=== PATIENT | male | born 1970 | race Caucasian/White ===

== ENCOUNTER 2016-11-14 23:24 | Emergency (ER) | payer SELFPAY ==
[~2016-11-14] VITALS: Ht 172.7 cm; Wt 72.3 kg
[~2016-11-14 23:24] MED LIST: ACET-704 PO; ACET500T68 PO; CITA20TA9 PO; CYCL-331 PO; DIPH25CA58 PO; HYDR-2758 PO; HYDR-971 PO; IBUP200T43 PO; IBUP400T18 PO; IBUP800T19 PO; LISI10TA2 PO; MELA3TAB2 PO; MELO7.5T29 PO; META-21 PO; METH-37 PO; METH4TAB2 PO; NAPR500T3 PO; NAPR500T8 PO; PRED20TA PO; TIZA4TAB PO; TRAM50TA PO
[2016-11-14 23:48] VITALS: BP 152/95
[2016-11-14] MEDS ORDERED: TRAM-48 PO (23:56)
[2016-11-14] MEDS ORDERED: CYCL-331 PO (23:56)
--- NOTE | 2016-11-14 23:56 | PHYS DOC ---
Past History Past Medical History: Hypertension Past Surgical History: No Surgical History Smoking: Less than 1pk/day Alcohol Use: None Drug Use: None Adult General Chief Complaint Chief Complaint: LOWER EXT PAIN HPI HPI Patient is a 46-year-old gentleman with a history significant for chronic lower back pain and chronic sciatica who presents ER today requesting assistance secondary to left-sided sciatica. Patient reports that he recently fell and was seen by his primary care physician and was started on a Medrol Dosepak secondary to worsening sciatica. Patient reports he decreased his dose today as instructed and this evening is having severe left-sided sciatica pain. Patient denies any other injuries. Patient has any fevers shakes chills nausea vomiting diarrhea chest pain or shortness of breath. Patient denies any loss of bowel or bladder function. Patient denies any weakness to his lower extremities. Any limitation to his gait is secondary to pain. Patient reports he has a history of hypertension. No history of diabetes liver longer kidney problems. Patient reports he smokes no alcohol or drugs. Patient has not had any abdominal surgeries in the past. Patient's ER physical exam is significant for tenderness to palpation to his left gluteal area and sciatic region. Patient is a bleeding the ED room without any difficulty in strength however he does appear to be uncomfortable. Review of systems: Constitutional: Denies fever or chills Eyes: Denies change in visual acuity, redness, or eye pain HENT: Denies nasal congestion or sore throat All other review systems are negative except as documented in the history of present illness portion. Physical exam: Constitutional: Well developed, well nourished, no acute distress, non-toxic appearance. HENT: Normocephalic, atraumatic, bilateral external ears normal, nose normal. Eyes: EOMI, conjunctiva normal, no discharge. Neck: Normal range of motion, no tenderness, supple, no stridor. Cardiovascular:Heart rate regular rhythm Lungs & Thorax: Bilateral breath sounds clear to auscultation no respiratory distress Abdomen: Bowel sounds normal, soft, no tenderness, no masses, no pulsatile masses. Skin: Warm, dry, no erythema, no rash. Back: Tenderness to palpation to his left lower back and his left sciatic area. Extremities: No tenderness, no cyanosis, no clubbing, ROM intact, no edema. Neurologic: Alert and oriented X 3, normal motor function, normal sensory function, no focal deficits noted. Psychologic: Affect normal, judgement normal, mood normal. Assessment and plan Acute exacerbation of chronic lower back pain. Patient reports that he's been here several times in the past however today he reports he is having severe pain to his left sciatic area. Patient is requesting assistance with a muscle relaxant. Patient reports he did drive here today secondary understands that we cannot give him a dose of that here. Patient will be given a dose of Ultram in the ED and will be given a prescription for one week and Flexeril to be able see his primary care physician for further evaluation and management. Patient understands that he has chronic pain and for his best interest patient needs evaluation by a pain specialist and primary care physician in order to manage his pain most effectively. Allergies Allergies Allergies Coded Allergies Type Severity Reaction Last Updated Verified ketorolac Allergy Severe HIVES TOLERATES MOTRIN 03/30/15 Yes meperidine Allergy Severe HIVES 03/30/15 Yes metoprolol Allergy Severe "Anaphylaxis" 03/30/15 Yes orphenadrine Adverse Reaction Severe SEE COMMENT 03/30/15 Yes butorphanol Adverse Reaction Mild PANIC ATTACK 07/28/15 Yes EKG EKG [] Radiology/Procedures Radiology/Procedures [] Course & Med Decision Making Course & Med Decision Making Pertinent Labs and Imaging studies reviewed. (See chart for details) [] Dragon Disclaimer Dragon Disclaimer This chart was dictated in whole or in part using Voice Recognition software in a busy, high-work load, and often noisy Emergency Department environment. It may contain unintended and wholly unrecognized errors or omissions. Departure Departure: Impression: Primary Impression: Sciatica Disposition: 01 HOME, SELF-CARE Condition: IMPROVED Referrals: NON,STAFF (PCP) Patient Instructions: Sciatica Scripts Tramadol Hcl (ULTRAM) 50 Mg Tablet 50 MG PO PRN Q6HRS Y for PAIN, #20 TAB Prov: RACHAEL RIDER MD 11/14/16 Cyclobenzaprine Hcl (CYCLOBENZAPRINE HCL) 10 Mg Tablet 1 TAB PO TID, #30 TAB Prov: RACHAEL RIDER MD 11/14/16 RACHAEL RIDER MD Nov 14, 2016 23:56
[2016-11-15] MEDS ORDERED: traMADol 50 MG TABLET PO ONE (00:15)
== END 2016-11-15 00:15 | disposition home or self-care (01) ==
LOC: ER 23:24
DX: M54.42 Lumbago with sciatica, left side (principal); G89.29 Other chronic pain; I10 Essential (primary) hypertension; F17.200 Nicotine dependence, unspecified, uncomplicated; Z88.8 Allergy status to other drugs, medicaments and biological substances
CPT/HCPCS: 99283